=== PATIENT | female | born 1980 | race African-American/Black ===

== ENCOUNTER 2016-06-28 04:10 | Emergency (ER) | payer OTHER ==
[2016-06-28] MEDS ORDERED: BUPIVACAINE 0.5% 30 ML VIAL INF ONE (04:17)
[2016-06-28 04:24] VITALS: BP 162/111; PULSE 148; TEMP 98.7; BMI 34.4
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
== END 2016-06-28 05:06 ==
LOC: ED 04:10
DX: S61.214A Laceration without foreign body of right ring finger without damage to nail, initial encounter (principal); S61.216A Laceration without foreign body of right little finger without damage to nail, initial encounter; W45.8XXA Other foreign body or object entering through skin, initial encounter; Y93.9 Activity, unspecified
CPT/HCPCS: 12001; 99282; J3490